=== PATIENT | female | born 1995 | race Caucasian/White ===

== ENCOUNTER 2025-04-15 14:16 | Outpatient (OUT) | payer BC, OTHER, SELFPAY ==
--- OUTSIDE RECORDS SUMMARY | 2025-04-02 09:45 | XMS_ITS | Encounter Summary ---
Author Organization [facility] Address [address] [place] [address] Care Team Providers Care Marine Fuel Dock Attendant Name Role Phone Meche Fiore MD Primary Care Provider [phone] Brittany Carrizales NP Unavailable Encounter Details DateTypeDepartmentCare Team (Latest Contact Info)Ulxermbtsso04/18/2025 9:45 AM ESTRoutine [facility] [address] [place] [address] Ayesha Peterson, CN [address] [place], [place] [id number] History of pre-eclampsia (Primary Dx); Encounter for supervision of other normal , third trimester ([facility]) Social History Tobacco UseTypesPacks/DayYears UsedDateSmoking Tobacco: NeverSmokeless Tobacco: NeverAlcohol UseStandard Drinks/WeekCommentsNever0 (1 standard drink = 0.6 oz pure alcohol)caffeine: occasionallyEstimated Date of DeliveryCommentsYes 6Based on last menstrual period of 08/14/2024 (Exact Date)Sex and Gender InformationValueDate RecordedSex Assigned at BirthNot on fileLegal SexFemale 06/28/2022 7:18 PM EDTGender IdentityNot on fileSexual OrientationNot on file 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 Alexus Wright is a 29 y.o. at 33w0d with a working estimated date of delivery of 05/21/2025, by Last Menstrual Period who presents for a routine visit. She denies vaginal bleeding, leakage of fluid, decreased movements, or contractions. OB History Para Term AB Living 2 1 1 1 SAB IAB Ectopic Multiple Live Births 1 # Outcome Date GA Lbr Maruice/2nd Weight Sex Type Anes PTL Lv 2 Current 1 07/24/19 34w3d 04:55 / 01:09 4 lb 3.7 oz M Vag-Spont EPI LAVONNE Her is complicated by: H/o preeclampsia Objective Physical Exam Weight: 235 lb Expected Total Weight Gain: 11 lb-19 lb Pregravid BMI: 33.27 BP: 118/80 Urine protein-negative Urine glucose-negative Assessment/Plan Diagnoses and all orders for this visit: History of pre-eclampsia Encounter for supervision of other normal , third trimester ([facility]) Continue vitamin. Labs reviewed. GBS at 36 weeks Expected mode of delivery Follow up in 1 week for a routine visit. documented in this encounter Plan of Treatment DateTypeDepartmentCare Team (Latest Contact Info)Udilxojggik32/05/2026 3:45 PM ESTRoutine [facility] [address] [place] [address] Ayesha Peterson CNM [address] [place], [place] [phone] documented as of this encounter Visit Diagnoses Diagnosis History of pre-eclampsia- Primary Encounter for supervision of other normal , third trimester ([facility]) documented in this encounter Care Teams Team MemberRelationshipSpecialtyStart DateEnd Date Meche Fiore MD [address] [place] [address] PCP - GeneralFamily Medicine10/06/24 Brittany Carrizales NP [address] [place] [address] PCP - Polina Fuchs07/15/24documented as of this encounter
--- OUTSIDE RECORDS SUMMARY | 2025-04-15 14:22 | XMS_ITS | Clinical Summary ---
Author Organization [facility] Address [address] [place] [address] Care Team Providers Care Settlement Technician Name Role Phone Meche Fiore MD Primary Care Provider [phone] Pump, Brittany GUIDO Unavailable Allergies Active AllergyReactionsCriticalityNoted DateCommentsAmoxicillinHives,Itching, Rash,CkatsuojOja04/25/2011PenicillinsHives,LiaaTyn3007/01/2019 Medications MedicationSigDispense QuantityRefillsLast FilledStart DateEnd DateStatus MV-Min-Fe Fum-FA-DHA ( 1 PO) Take by mouthActive Encounters DateTypeDepartmentCare CirvKznshepokrq35/18/2025 9:45 AM ESTRoutine SUMAYA STEVENSON [address] [place] [address] Ayesha Peterson CNM History of pre-eclampsia (Primary Dx); Encounter for supervision of other normal , third trimester ([facility]) 04/02/2025amboo flowsheet SUMAYA STEVENSON [address] [place] [address] Ayesha Peterson CNM 04/02/20257430Xbtdvp43/24/2025 4:00 PM ESTAncillary Procedure [facility] [address] [place] [address] related condition in second trimester ([facility])03/09/2025Travel 03/03/2025Results Follow-Up SUMAYA STEVENSON [address] [facility] [place] [phone] Lucy Quezada LPN GLUCOSE, GESTATIONAL SCREEN (50G)-135 CUTOFF, CBC02/25/2025 9:30 AM ESTRoutine SUMAYA RINCONN [address] [facility] [place] [phone] Ayesha Peterson CNM Encounter for supervision of other normal , second trimester ([facility]) (Primary Dx); Screening for diabetes mellitus (DM); Screening for iron deficiency anemia; related condition in second trimester ([facility])02/25/2025amboo flowsheet SUMAYA RINCONN [address] [facility] [place] [phone] Ayesha Peterson CNM 02/24/20250117Yoibpw52/15/2025 4:30 PM EDTRoutine SUMAYA RINCONN [address] [facility] [place] [phone] Ayesha Peterson CNM Encounter for supervision of other normal , second trimester ([facility]) (Primary Dx); History of pre-/15/2025[facility] flowsheet [facility] RINCONN [address] [facility] [place] [phone] Ayesha Peterson CNM 01/27/2025Travelfrom Last 3 Months Family History RelationNameStatusCommentsBrotherAliveFatherAliveMotherAlive Social History Tobacco UseTypesPacks/DayYears UsedDateSmoking Tobacco: NeverSmokeless Tobacco: NeverAlcohol UseStandard Drinks/WeekCommentsNever0 (1 standard drink = 0.6 oz pure alcohol)caffeine: occasionallyEstimated Date of DeliveryCommentsYes 05/21/2025ased on last menstrual period of 08/14/2024 (Exact Date)Sex and Gender InformationValueDate RecordedSex Assigned at BirthNot on fileLegal SexFemale 06/28/2022 7:18 PM EDTGender IdentityNot on fileSexual OrientationNot on file 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 on file Not on file Last Filed Vital Signs Vital SignReadingTime TakenCommentsBlood Vhhmazin662/8012 9:43 AM EST Drlqj195003/20/2024 2:57 PM ESTTemperature--Respiratory Rate--Oxygen Saturation-- Inhaled Oxygen Concentration--Gmulvb961 kg (235 lb)04/02/2025 9:43 AM ESTHeight 167.6 cm (5' 6 )11/08/2022 10:06 AM EDTBody Mass Index37.9311/08/2022 10:06 AM EDT Plan of Treatment DateTypeDepartmentCare Team (Latest Contact Info)Vbtrkcmzivy28/05/2026 3:45 PM ESTRoutine [facility] [address] [place] [phone] Ayesha Peterson, CNM [address] [place] [address] Health MaintenanceDue DateLast DoneCommentsPap Smear/ Influenza Vaccine (#1)511/07/2018Cervical Cancer Ujvjxoblv18/26/2028 HPV/Ufdnjw19neumococcal Vaccine: Pediatrics (0 to 5 Years) and At-Risk Patients (6 to 64 Years)Aged OutNo longer eligible based on patient's age to complete this topic Procedures Procedure NamePriorityDate/TimeAssociated DiagnosisCommentsUS OB FOLLOW UP TRANSABDOMINAL PTSLVBHTWubenrc38/24/2025 4:06 PM EST related condition in second trimester ([facility]) GORZsuvtec97/12/2025 10:42 AM EST Screening for iron deficiency anemia GLUCOSE, GESTATIONAL SCREEN (50G)-135 LYSHKBFcfwcvm85/12/2025 10:42 AM EST Screening for diabetes mellitus (DM) THINPREP PAP AND HPV MRNA E6/E7 W/RFL HPV 16,18/99Hmtrcvc72/26/2023 11:11 AM EDT Screening for cervical cancer THINPREP TIS PAP AND HPV MRNA E6/E7 REFLEX HPV 16,18/45 (87108)Fnhhmln3107/15/2019 from Last 3 Months or Most Recently Relevant to Health Maintenance Results * US OB follow up transabdominal approach (03/09/2025 4:06 PM EST)Anatomical RegionLateralityModalityBodyUltrasoundSpecimen (Source)Anatomical Location / LateralityCollection Method / VolumeCollection TimeReceived Time03/10/2025 4:09 PM EST Impressions 03/11/2025 8:10 AM EST Single, live intrauterine , current sonographic age of 29 weeks and 3 days, with an estimated date of delivery of May 22, 2025 (prior MCKAYLA May 19, 2025) * ??Estimated Weight (g) by Percentile is based upon an accurate estimated age based onlast menstrual period. ?? TRANSCRIBED BY: ? ELECTRONICALLY SIGNED BY: Shankar Garcia MD Narrative 03/11/2025 8:10 AM EST FINDINGS: Comparison December 22, 2024. A single, live intrauterine is present with normal cardiac rate of 141 beats per minute. Normal activity and amniotic fluid volume. Amniotic fluid index is 16 cm. ??Morphology is grossly normal. The cervix is long and closed, 6.8 cm. ??The placenta is anterior, not associated with the cervical os. ??The current sonographic age is 29 weeks and 3 days, based on the following measurements: ?BPD ? 7.2 cm (28 weeks, 5 days) ?Head Circumference ?27.0 cm (29 weeks, 3 days) ?Abdominal Circumference ?25.5 cm (29 weeks, 5 days) ?Femur Length ?5.7 cm (30 weeks, 0 days) ?Presentation ? Cephalic ?Placenta ? Anterior Grade I ? Weight (g) by Percentile ??41.3 % * These measurements result in an estimated date of delivery of May 22, 2025. ??The current estimated weight is 1439 grams (3 pounds, 3 ounces). ?? Procedure Note Shankar Garcia MD - 03/11/2025 FINDINGS: Comparison December 22, 2024. A single, live intrauterine is present with normal cardiacrate of 141 beats per minute. Normal activity and amniotic fluidvolume. Amniotic fluid index is 16 cm. Morphology is grossly normal. Thecervix is long and closed, 6.8 cm. The placenta is anterior, notassociated with the cervical os. The current sonographic age is 29 weeksand 3 days, based on the following measurements: BPD 7.2 cm (28 weeks, 5 days) Head Circumference 27.0 cm (29 weeks, 3 days) Abdominal Circumference 25.5 cm (29 weeks, 5 days) Femur Length 5.7 cm (30 weeks, 0 days) Presentation Cephalic Placenta Anterior Grade I Weight (g) by Percentile 41.3 % * These measurements result in an estimated date of delivery of May. The current estimated weight is 1439 grams (3 pounds, 3ounces). IMPRESSION: Single, live intrauterine , current sonographic age of 29 weeksand 3 days, with an estimated date of delivery of May 22, 2025 (priorEDD May 19, 2025) * Estimated Weight (g) by Percentile is based upon an accurateestimated age based on last menstrual period. TRANSCRIBED BY: ELECTRONICALLY SIGNED BY: Shankar Garcia MD Authorizing ProviderResult TypeResult StatusValesophia Peterson [facility] PROCEDURESFinal Result * GLUCOSE, GESTATIONAL SCREEN (50G)-135 CUTOFF (02/25/2025 10:42 AM EST) ComponentValueRef RangeTest MethodAnalysis TimePerformed AtPathologist SignatureGLUCOSE, GESTATIONAL SCREEN (50G)-135 BBJLCN60<135 mg/dLQUESTSpecimen (Source)Anatomical Location / LateralityCollection Method / VolumeCollection TimeReceived Time02/25/2025 10:42 AM EST02/25/2025 10:18 AM EST Narrative Resulting Agency Comment Performing Organization Information ?Site ID: [id number] ?Name: [facility] ?Address: [address] [place] [address], [address] [place] [phone] ?Director: Berny Vazquez MD Authorizing ProviderResult TypeResult StatusValeribasil Peterson CNMLAB BLOOD ORDERABLESFinal ResultPerforming OrganizationAddressCity/State/ZIP CodePhone Number [facility] * (ABNORMAL) CBC (02/25/2025 10:42 AM EST)ComponentValueRef RangeTest Method Analysis TimePerformed AtPathologist SignatureWHITE BLOOD CELL COUNT10.53.8 - 10.8 Thousand/uLQUESTRED BLOOD CELL COUNT3.64(L)3.80 - 5.10 Million/uLQUEST TNYQJYNMVF42.5(L)11.7 - 15.5 g/zIZOQEIJQNUSDMZRN58.4(L)35.0 - 45.0 %QUESTMCV 94.580.0 - 100.0 yKBHQISUZB20.627.0 - 33.0 swWGGHQVCEL92.432.0 - 36.0 g/dL QUESTComment: For adults, a slight decrease in the calculated MCHC value (in the range of 30 to 32 g/dL) is most likely not clinically significant; however, it should be interpreted with caution in correlation with other red cell parameters and the patient's clinical condition. RDW12.811.0 - 15.0 %QUESTPLATELET DEUIR236452 - 400 Thousand/pKJXCKJENE78.57.5 - 12.5 fLQUESTSpecimen (Source)Anatomical Location / LateralityCollection Method / VolumeCollection TimeReceived TimeBloodVenous blood specimen / Pdolbks0302/25/2025 10:42 AM EST02/25/2025 10:18 AM EST Narrative Resulting Agency Comment Performing Organization Information ?Site ID: [id number] ?Name: [facility] ?Address: [address] [place] [address], [address] [place] [phone] ?Director: Berny Vazquez MD Authorizing ProviderResult TypeResult StatusValesophia Peterson CNMLAB BLOOD ORDERABLESFinal ResultPerforming OrganizationAddressCity/State/ZIP CodePhone Number [facility] * THINPREP PAP AND HPV MRNA E6/E7 W/RFL HPV 16,18/45 (11/08/2022 11:11 AM EDT) ComponentValueRef RangeTest MethodAnalysis TimePerformed AtPathologist SignatureCLINICAL INFORMATIONQUESTComment:None givenLMPQUESTComment:NONE GIVEN PREV. PAPQUESTComment:NONE GIVENPREV. BXQUESTComment:NONE GIVENSOURCEQUEST Comment:None givenSTATEMENT OF ADEQUACYQUESTComment: Satisfactory for evaluation. Endocervical/transformation zone component absent. INTERPRETATION/RESULTQUESTComment: Cytology Results: Negative for intraepithelial lesion or malignancy. CYTOTECHNOLOGISTQUESTComment: [facility], CT(ASCP) CT Screening Location: [facility] [address] ??[address] (ALWAYS MESSAGE)QUESTComment: EXPLANATORY NOTE: The Pap is a screening test for cervical cancer. It is not a diagnostic test and is subject to false negative and false positive results. It is most reliable when a satisfactory sample, regularly obtained, is submitted with relevant clinical findings and history, and when the Pap result is evaluated along with historic and current clinical information. HPV MRNA E6/E7Not DetectedNot DetectedQUESTComment: Methodology: Divorce Lawyer-Mediated Amplification This assay detects E6/E7 viral messenger RNA (mRNA) from 14 high-risk HPV types (16,18,31,33,35,39,45,51,52,56,58,59,66,68). Cervical sources are required for HPV testing. If a vaginal source from a patient who has had a total hysterectomy with removal of cervix was submitted, please contact the testing laboratory for alternative testing options. For additional information, please refer to http://education.[employer]/faq/KWT763r9 (This link if provided for information/ educational purposes only.) Specimen (Source)Anatomical Location / LateralityCollection Method / Volume Collection TimeReceived Time11/08/2022 11:11 AM EDT11/09/2022 3:48 AM EDT Narrative Resulting Agency Comment Performing Organization Information ?Site ID: [id number] ?Name: [facility] ?Address: [address] [place] [phone] ?Director: Berny Vazquez MD Authorizing ProviderResult TypeResult StatusValesophia Zunigakings CNMLAB BLOOD ORDERABLESFinal ResultPerforming OrganizationAddressCity/State/ZIP CodePhone Number [facility] * THINPREP TIS PAP AND HPV MRNA E6/E7 REFLEX HPV 16,18/45 (59058) (07/15/2019) ComponentValueRef RangeTest MethodAnalysis TimePerformed AtPathologist SignatureCLINICAL INFORMATION:None givenNOMS LEGACY EXTERNAL LABLMP:None given [facility] LE[facility]Y EXTERNAL LABPREV. PAP:None givenNOMS LEGACY EXTERNAL LABPREV. BX: None givenNOMS LEGACY EXTERNAL LABSOURCE:None givenNOWV LEGACY EXTERNAL LAB STATEMENT OF ADEQUACY:SEE COMMENTNOWV LEGACY EXTERNAL LABComment: Satisfactory for evaluation. Endocervical/transformation zone component present. INTERPRETATION/RESULT:Negative for intraepithelial lesion or malignancy.[facility] LE[facility]Y EXTERNAL LABCOMMENT:This Pap test has been evaluated with computer assisted technology.[facility] LEGACY EXTERNAL LABCYTOTECHNOLOGIST:SEE COMMENTNOWV LEGACY EXTERNAL LABComment: KAYLYN CHIU(ASCP) CT screening location: [facility] [place], [address] [place] [address]. COMMENTSEE COMMENTNOWV LEGACY EXTERNAL LABComment: EXPLANATORY NOTE: The Pap is a screening test for cervical cancer. It is not a diagnostic test and is subject to false negative and false positive results. It is most reliable when a satisfactory sample, regularly obtained, is submitted with relevant clinical findings and history, and when the Pap result is evaluated along with historic and current clinical information. HPV MRNA E6/E7Not DetectedNot DetectedNOMS LEGACY EXTERNAL LABComment: This test was performed using the APTIMA HPV Assay ([employer] This assay detects E6/E7 viral messenger RNA (mRNA) from 14 high-risk HPV types (16,18,31,33,35,39,45,51,52,56,58,59,66,68). The analytical performance characteristics of this assay have been determined by [facility]. The modifications have not been cleared or approved by the FDA. This assay has been validated pursuant to the CLIA regulations and is used for clinical purposes. Specimen (Source)Anatomical Location / LateralityCollection Method / Volume Collection TimeReceived Time07/15/2019 Narrative Authorizing ProviderResult TypeResult StatusValerie Kiara Peterson CNMECW LABSFinal ResultPerforming OrganizationAddressCity/State/ZIP CodePhone Number [facility] from Last 3 Months or Most Recently Relevant to Health Maintenance Insurance * Guarantor: Alexus Wright TypeRelation to PatientDate of BirthPhone Billing AddressPersonal/LpxwoqUbyd65/22/1996 [address] [place] [address] Care Teams Team MemberRelationshipSpecialtyStart DateEnd Meche Fiore MD [address] [place] [address] PCP - GeneralFamily Medicine10/06/24 Brittany Carrizales NP [address] [place] [address] SINDHU [facility]07/15/24
--- OUTSIDE RECORDS SUMMARY | 2025-04-15 14:22 | XMS_ITS | Encounter Summary ---
Author Organization [facility] Address [address] [place] [address] Care Team Providers Care Magnetic Tape Winder Name Role Phone Meche Fiore MD Primary Care Provider [phone] Brittany Carrizales NP Unavailable Encounter Details DateTypeDepartmentCare Team (Latest Contact Info)Dxtlehqwvkd06/18/2025Travel Social History Tobacco UseTypesPacks/DayYears UsedDateSmoking Tobacco: NeverSmokeless [...] Not on filedocumented as of this encounter Plan of Treatment DateTypeDepartmentCare Team (Latest Contact Info)Gizzbahqfry48/05/2026 3:45 PM ESTRoutine [facility] [address] [place] [address] Ayesha Peterson, CNM [address] [place] [address] documented as of this encounter Visit Diagnoses Not on filedocumented in this encounter Care Teams Team MemberRelationshipSpecialtyStart DateEnd Date Meche Fiore MD [address] [place], [place] [phone] PCP - GeneralFamily Medicine10/06/24 Brittany Carrizales NP [address] [place], [place] [address] PCP - Polina Fuchs07/15/24documented as of this encounter
--- OUTSIDE RECORDS SUMMARY | 2025-04-15 14:22 | XMS_ITS | Encounter Summary ---
Author Organization [facility] Address [address] [place] [address] Care Team Providers Care Paraffin Plant Operator Name Role Phone Meche Fiore MD Primary Care Provider [phone] Brittany Carrizales NP Unavailable Encounter Details DateTypeDepartmentCare Team (Latest Contact Info)Qzzpwdxohnj80/18/2025Bamboo flowsheet [facility] [address] [place] [address] Ayesha Peterson, CNM [address] [place], [place] [phone] Social History Tobacco UseTypesPacks/DayYears UsedDateSmoking Tobacco: NeverSmokeless [...] Plan of Treatment DateTypeDepartmentCare Team (Latest Contact Info)Sskqxhocrkd21/08/2025 3:45 PM ESTRoutine [facility] [address] [place] [address] Ayesha Peterson, CELIA [address] [place], [place] [phone] documented as of this encounter Visit Diagnoses Not on filedocumented in this encounter Care Teams Team MemberRelationshipSpecialtyStart DateEnd Date Meche Fiore MD [address] [place], [place] [phone] PCP - GeneralFamily Medicine10/06/24 Brittany Carrizales NP [address] [place], [place] [phone] PCP - Polina Fuchs07/15/24documented as of this encounter
--- OUTSIDE RECORDS SUMMARY | 2025-04-15 14:22 | XMS_ITS | Clinical Summary ---
Author Organization [facility] Address [address] [place] [address] Care Team Providers Care Car Chaser Name Role Phone Unavailable Primary Care Provider Unavailabl e Social History Tobacco UseTypesPacks/DayYears UsedDateSmoking Tobacco: Never Assessed CommentsUnknownSex and Gender InformationValueDate RecordedSex Assigned at Not on fileLegal LenLodvke20/29/2022 10:22 PM EDTGender IdentityNot on file Sexual OrientationNot on file Plan of Treatment Not on file
--- OUTSIDE RECORDS SUMMARY | 2025-04-15 14:22 | XMS_ITS | Clinical Summary ---
Author Organization [facility] Address [facility] [id number] [address] [place] [address] Care Team Providers Care Shear Helper Name Role Phone No Pcp, No Pcp Primary Care Provider Unavailabl e Allergies Active AllergyReactionsCriticalityNoted FcpaQtclgigeWcwmaadfrulPdnda71/17/2020 OfqlubrzibcFygwj45/17/2020 Medications MedicationSigDispense QuantityRefillsLast FilledStart DateEnd DateStatus vit calc,iron,folic ( VITAMIN ORAL) Take by mouth.Active docusate sodium (COLACE) 100 mg capsule Take 1 capsule (100 mg total) by mouth 2 (two) times a day. 10 capsule 07/26/2019Active ibuprofen (ADVIL,MOTRIN) 800 mg tablet Take 1 tablet (800 mg total) by mouth every 8 (eight) hours as needed (cramping). 30 tablet 07/26/2019Active NIFEdipine XL (PROCARDIA XL) 60 mg 24 hr tablet Take 1 tablet (60 mg total) by mouth every 12 (twelve) hours. 60 tablet 07/26/2019Active labetaloL (NORMODYNE) 200 mg tablet Take 1 tablet (200 mg total) by mouth every 12 (twelve) hours. 60 tablet 07/26/2019Active norethindrone (MICRONOR) 0.35 mg tablet Take 1 tablet (0.35 mg total) by mouth daily. 28 tablet Active Active Problems ProblemNoted DateDiagnosed DateBlood pressure check08/01/2019Pre-eclampsia, jhecyjgcu13/08/2020 Immunizations No known immunizations Social History Tobacco UseTypesPacks/DayYears UsedDateSmoking Tobacco: NeverSmokeless Tobacco: NeverAlcohol UseStandard Drinks/WeekCommentsNot Currently0 (1 standard drink = 0.6 oz pure alcohol)ChildcareAnswerDate IxxmgjunXuqrkiricNaanfvf07/12/2019 EmploymentAnswerDate BnyrvpxaEhwhucsuszTcezmki10/12/2019Purpose - LifeAnswerDate RecordedPurpose and direction in pttlJicbatw74/11/2021CommentsNoSex and Gender InformationValueDate RecordedSex Assigned at BirthNot on fileLegal Sex Pamrnk6411/19/2014 11:48 AM EDTGender IdentityNot on fileSexual OrientationNot on file Last Filed Vital Signs Vital SignReadingTime TakenCommentsBlood Ifrinvgb992/90007/26/2019 4:00 PM EDT Hwlzq1224/11/2020 4:00 PM VSWYvhgdwmseao61.7 ??C (98.1 ??F)07/26/2019 4:00 PM EDTRespiratory Mmty605207/26/2019 4:00 PM EDTOxygen Ytpxotztfo95%07/25/2019 10:00 AM EDTInhaled Oxygen Concentration--Aimgmh151 kg (227 lb 1.2 oz)07/26/2019 12:00 AM KCMVkkpgl889.6 cm (5' 5.98 )07/26/2019 12:00 AM EDTBody Mass Index36.67 07/26/2019 12:00 AM EDT Plan of Treatment Health MaintenanceDue DateLast DoneCommentsDepression Oqpicfmxo17/22/2006Tobacco Ihxgdxeyy12/22/2006dult BMI Abnksovtf32/22/2012Pap Smear2014Influenza Ujmigsh12/01/96667504/19/2018DTaP,Tdap and Td Vaccines (3 - Td or Tdap)07/14/2029 07/15/2019, 02/06/2018 Medical Devices Not on file Insurance * Guarantor: Alexus WrightAccount TypeRelation to PatientDate of PhoneBilling AddressPersonal/RxtpdmZxju22/22/1996 [address] [place] [address] Care Teams Team MemberRelationshipSpecialtyStart DateEnd Date No Pcp, No Pcp [place] [address] [facility] - [facility]/30/19
[2025-04-15 14:46] VITALS: BP 134/93; PULSE 74
[2025-04-15 14:49] LABS: Glucose Urine UA NEGATIVE (NEGATIVE)
[2025-04-15 15:09] LABS: Crystals Seen? None Seen #/HPF (None Seen)
[2025-04-15 15:10] VITALS: BP 142/85; PULSE 74
[2025-04-15 15:10] LABS: Cast Seen? NONE SEEN #/LPF (NONE SEEN); Urine Culture Indicated YES-FRMC
== END 2025-04-15 15:45 | disposition home or self-care (01) ==
LOC: FBCO 14:21 → FBC 14:29
PROVIDERS: Visit Provider Obstetrics & Gynecology
DX: O26.853 Spotting complicating pregnancy, third trimester (principal); O26.893 Other specified pregnancy related conditions, third trimester; Z3A.34 34 weeks gestation of pregnancy
CPT/HCPCS: 59025; 81001; 87086